=== PATIENT | male | born 2005 | race African-American/Black ===

== ENCOUNTER 2025-04-25 12:13 | Emergency (ER) | payer OTHER ==
[~2025-04-25] VITALS: Ht 172.7 cm; Wt 75.3 kg
--- NOTE | 2025-04-25 12:37 | ERN ---
ED Note History of Present Illness Stated Complaint: SORE THROAT Chief Complaint: Sore Throat Time Seen by MD: 12:25 Time Seen by Midlevel: 12:30 Dictation: Mr. Rico is a 20-year-old male with no reported chronic health issues who presented to the emergency department this afternoon for evaluation of flu symptoms. He reports four days of fever, chills, body aches, nausea, anorexia, nasal congestion, sore throat, and decreased appetite. He states he has wanted to stay in bed all day and is very sleepy. He states he has not eating or drinking very well; no appetite. He has not been taking any [id number] medications. He states his girlfriend is also ill with similar symptoms. He denies shortness of breath, cough, chest pain, palpitations, edema, abdominal pain, vomiting, hematemesis, constipation, diarrhea, melena, hematochezia, dysuria, headache, dizziness, or focal weakness/paresthesia Allergies: Coded Allergies: No Known Allergies (Unverified Allergy, Unknown, 04/25/25) Emergency Care PER DIEM NURSE: None Past Medical History Past Medical History: No Pertinent History Surgical History: None PSYCH History: no pertinent psych hx Social History: Negative RN Note Reviewed/Agreed w/PFSH: Yes Review of System Dictation REVIEW OF SYSTEMS: CONSTITUTIONAL: Patient denies sweats and weight changes. Reports fatigue and general weakness. He states he wants to sleep all the time. He reports fever and chills. EYES: Patient denies any visual symptoms. EARS, NOSE, AND THROAT: No difficulties with hearing. No symptoms of rhinitis reports sore throat; pain with swallowing. He reports nasal congestion. CARDIOVASCULAR: Patient denies chest pains, palpitations, orthopnea and paroxysmal nocturnal dyspnea. RESPIRATORY: No dyspnea on exertion, no wheezing or cough. GI: No vomiting, diarrhea, constipation, abdominal pain, hematochezia or melena. He reports nausea and poor appetite : No urinary hesitancy or dribbling. No nocturia or urinary frequency. No abnormal urethral discharge. MUSCULOSKELETAL: Reports generalized body aches. NEUROLOGIC: No chronic headaches, no seizures. Patient denies numbness, tingling or weakness. PSYCHIATRIC: Patient denies problems with mood disturbance. No problems with anxiety. ENDOCRINE: No excessive urination or excessive thirst. DERMATOLOGIC: Patient denies any rashes or skin changes. Initial Vital Sign VS Vital Signs Date Time Temp Pulse Resp B/P (MAP) Pulse Ox O2 Delivery O2 Flow Rate FiO2 04/25/25 12:15 98.2 74 20 130/61 97 Room Air 0 Physical Exam Dictation Vital signs: Reviewed. Afebrile Constitutional: No acute distress. Non-toxic appearing. Drinking water Head/Face: Normocephalic, atraumatic. Eyes: Periorbital areas with no swelling, redness, or edema. Lids and lashes are normal. Conjunctival injection is absent. Sclera anicteric. Pupils equal, round, reactive to light. ENT: Pinnas intact and no signs of trauma or erythema. Ear canals clear and no discharge. TMs no erythema. No nasal discharge or bleeding noted. Oropharynx with bright erythema; no exudate, swelling, masses, exudates, or evidence of obstruction. Uvula midline. Mucous membranes moist. Neck: Trachea midline, no masses palpated, and no cervical lymphadenopathy. No swelling. Supple, full range of motion. Chest/Axilla: No tenderness, no crepitus, no paradoxical movement, no retractions. Cardiovascular: Regular rate, regular rhythm, no murmur, no gallops. Symmetric pulses. No peripheral edema. Respiratory: Respirations even and unlabored. Lung sounds clear; no wheezes, rales or rhonchi. Room air SpO2 97%. Gastrointestinal: Inspection is normal. No distention is appreciated. Bowel sounds are normal. No mass or organomegaly . There is no tenderness. No rebound. No rigidity. No voluntary or involuntary guarding. No Katz's sign. Neurological: Normal speech, gross motor function intact, gross sensory function intact. No focal weakness/Paresthesia. Musculoskeletal/Extremities: All extremities have full range of motion, no pain or tenderness on palpation. Symmetric pulses. Integumentary: Intact. Skin is normal color, warm and dry. Cap refill less than 2 seconds. Results (Laboratory/Radiology) Laboratory/Radiology Laboratory Tests Test 04/25/25 13:33 Influenza Type A Antigen Negative For Type A Influenza Type B Antigen Negative For Type B SARS-CoV-2, RNA, NAAT NEGATIVE SARS CoV-2 Group A Streptococcus Rapid negative (NEGATIVE) Labs Reviewed?: Yes ED Course ED Course Orders Procedure Category Date Status Time Rapid (Group A Strep) LAB 12/11/25 Complete 12:37 Influenza Type A & B, LAB 04/25/25 Complete Rapid 12:37 Covid Rna Naat LAB 04/25/25 Complete 12:37 Vital Signs Date Time Temp Pulse Resp B/P (MAP) Pulse Ox O2 Delivery O2 Flow Rate FiO2 04/25/25 12:15 98.2 74 20 130/61 97 Room Air 0 Uneventful ED course. Patient remains afebrile with room air SpO2 97%. He is drinking water. Test for influenza, COVID, and strep are all negative. Findings were discussed with patient and he was given discharge instructions which include prescriptions and supportive at home care. Medical Decision Making MDM MDM: Differential diagnosis: Influenza, COVID, strep, viral illness Rationale: Tests considered and ordered secondary to shared decision making include: LAB Previous outside records reviewed: Old ER visits. Risk of complication and/or morbidity or mortality of patient management: None Medications-Per medication reconciliation Need for hospitalization: Patient does not meet criteria for hospitalization. Need for emergency major/minor surgery: No There are no social concerns with this patient. Prescription drug management: Ibuprofen, Zofran, guaifenesin Prescriptions will include symptomatic care Patient's prior external medical records from other ER visits were reviewed by me as indicated. Prior testing and results from previous visits were reviewed. Prior tests were taken into account with medical decision making and resource utilization, independent historian/historians were used to obtain complete medical history. I independently interpreted the test that were performed, results were reviewed by me and considered findings on radiology if ordered. Medical management and examination interpretation discussions were had by me with other qualified healthcare professionals as indicated for the patient's care. DX & DISP Disposition: Discharge Departure Impression: Primary Impression: Viral illness Additional Impressions: Sore throat, Nausea Condition: Stable Scripts Ibuprofen (Ibuprofen) 600 Mg Tablet 600 MG PO Q6H PRN for PAIN, #15 TAB 0 Refills Prov: SHAYLA LIZ [facility] 04/25/25 Ondansetron (Ondansetron Odt) 4 Mg Tab.rapdis 4 MG PO Q6HPRN PRN for nausea, #15 TAB 0 Refills Prov: SHAYLA LIZ [facility] 04/25/25 Guaifenesin/Dextromethorphan (G-Fenesin Dm 20-400 mg Caplet) 400 Mg-20 Mg Tablet 1 EACH PO [id number], #10 TAB 0 Refills Prov: SHAYLA LIZ [facility]HAEL 04/25/25 Additional Instructions: You were evaluated in the emergency department for sore throat, body aches, and not feeling well. Your exam was reassuring and your test for flu, COVID-19, and strep throat were all negative, which means your symptoms are most likely caused by a viral illness. These viruses typically improve on their own with rest, fluids, and supportive care. You appear nontoxic and stable for discharge. Given given prescriptions for Zofran as needed for nausea. Ibuprofen for fever, sore throat, and body aches (take with a little food). Guaifenesin to help loosen mucus and improve cup. Take these medications as directed. Rest and drink plenty of fluids. Use warm teas, throat lozenges, or saltwater gargles for throat comfort. Use ibuprofen or acetaminophen for fever or pain as needed. Eat light meals and avoid dehydration. You may stay home from work for a day or two to rest and prevent spreading of the illness. Follow up with your primary care provider within the next 3-5 days if you are not improving or soone r if you have any concerns. You can also return for re-evaluation if needed. Return to the ER immediately if you develop trouble breathing, persistent high fever, inability to swallow/drooling, severe dehydration (no urinary output, dizziness, very dry mouth), chest pain, worsening symptoms that concern you, or any new or severe symptoms. Time of Disposition: 14:37 SHALONDASARASHAYLAJAZMYNE RODRIGUEZ Apr 25, 2025 12:37
[2025-04-25 14:03] LABS: RAPID GROUP A STREP negative (NEGATIVE)
[2025-04-25 14:04] LABS: SARS-CoV-2, RNA, NAAT NEGATIVE SARS CoV-2 (NEGATIVE)
[2025-04-25 14:12] LABS: INFLUENZA TYPE A Negative For Type A (NEGATIVE); INFLUENZA TYPE B Negative For Type B (NEGATIVE)
[2025-04-25 14:58] VITALS: BP 125/67; PULSE 78; RESP 20; TEMP 98; O2SAT 99
== END 2025-04-25 14:59 | disposition home or self-care (01) ==
LOC: EDH 12:13
DX: J02.9 Acute pharyngitis, unspecified (principal); R11.0 Nausea; B34.9 Viral infection, unspecified; E11.9 Type 2 diabetes mellitus without complications; Z20.822 Contact with and (suspected) exposure to COVID-19
CPT/HCPCS: 87635; 87804; 87880; 99283